=== PATIENT | female | born 1995 | race Two or more races ===

== ENCOUNTER 2021-03-24 11:17 | Inpatient (IN) | payer SELFPAY ==
[~2021-03-24] VITALS: Ht 157.5 cm; Wt 67.3 kg
--- NOTE | 2021-03-24 12:07 | PDOC1 ---
[employer] H&P Date of Admission: Date of Admission: Mar 24, 2021 at 11:17 History of Present Illness: EDC: 03/29/21 LMP: 06/22/20 26y @ 39.2 by L=36 who presents to L&D with ctxs. The pt was initial found to be 2cm. After a couple of hours the pt made minimal change, but continued to ctx regularly. Pit was started for augmentation. PMH: Denies PSH: breast mass 2016 Meds: PNV, Fe All: NKDA OBHx: G1 SH: no tob, no EtOH FH: noncontributory Allergies: Coded Allergies: No Known Drug Allergies (Unverified , 03/24/21) Physical Exam: PE: GENERAL: No apparent distress. Alert and oriented. HEENT: Head normocephalic, atraumatic. NECK: Supple LUNGS: Clear to auscultation. HEART: RRR, S1, S2 present, pulses intact ABDOMEN: Soft, positive bowel sounds. EXTREMITIES: No cyanosis or edema. NEUROLOGIC: Normal speech, normal tone PSYCHIATRIC: Normal affect, normal mood. SKIN: No ulceration. FHT: 130s +acels/no decels/mLTV [place]: 2-3 min SVE: 06/29/-3 Assessment & Plan: A/P 26y @ 39.2 by L=35 1.) Latent vs active labor - on Pit for augmentation 2.) Late presentation to care (TOB from [place]) 3.) Anemia 4.) Rub NI 5.) TDAP given 01/25/21 6.) Fetus cat I FHT 7.) GBS neg DODIE BARNES MD Mar 24, 2021 12:07
[2021-03-24] MEDS ORDERED: IV RINGERS,LACTATED 1000ML 1,000 ML IV PRN (12:15)
[2021-03-24 12:23] LABS: BILIRUBIN,URINE NEGATIVE (NEG); CLARITY,URINE CLEAR; COLOR,URINE YELLOW; NITRITE,URINE NEGATIVE (NEG); PH,URINE 7.5 (<5.0-8.0); PROTEIN,URINE NEGATIVE (NEG-TRACE); UROBILINOGEN,URINE 0.2 mg/dL (0.2 mg/dL)
[2021-03-24 12:43] LABS: BACTERIA,URINE 0 /HPF (0-FEW); RBC,URINE 0 /HPF (0-2)
[2021-03-24] MEDS ORDERED: ACETAMINOPHEN 325 MG TABLET. PO PRN (15:15)
[2021-03-24] MEDS ORDERED: IV RINGERS,LACTATED 1000ML 1,000 ML IV SCH (15:15)
[2021-03-24] MEDS ORDERED: TERBUTALINE 1 MG/ML VIAL. SQ PRN (15:15)
[2021-03-24] MEDS ORDERED: OXYTOCIN 30 UNIT/500 ML PREMIX 500 ML IV PRN (15:15)
[2021-03-24] MEDS ORDERED: BUTORPHANOL 2 MG/ML VIAL. IVP PRN ×2 (15:15)
[2021-03-24] MEDS ORDERED: LIDOCAINE 1% PF 30 ML VIAL. INJ PRN (15:15)
[2021-03-24] MEDS ORDERED: 0.9 % SODIUM CHLORIDE 10 ML DISP.SYRIN. IV PRN (15:15)
[2021-03-24] MEDS ORDERED: OXYTOCIN PREMIX 30 UNIT/500 ML NS BAG. IV ONE (15:30)
[2021-03-24 16:21] LABS: BASO # 0.1 x10^3/uL (0.0-0.2); BASO % 0 % (0-3); EOS % 0 % (0-3); HEMATOCRIT 36.6 % (36.0-47.0); HEMOGLOBIN 12.3 g/dL (12.0-15.5); LYMPH # 1.8 x10^3/uL (1.0-4.8); LYMPH % 11 % (24-48); MEAN CORPUSCULAR HEMOGLOBIN 29 pg (25-35); MEAN CORPUSCULAR HGB CONC 34 g/dL (31-37); MEAN CORPUSCULAR VOLUME 87 fL (79-100); MONO # 0.6 x10^3/uL (0.0-1.1); MONO % 4 % (0-9); NEUT # 13.9 x10^3/uL (1.8-7.7); NEUT % 85 % (31-73); PLATELET COUNT 319 x10^3/uL (140-400); RED BLOOD COUNT 4.22 x10^6/uL (3.50-5.40); RED CELL DISTRIBUTION WIDTH 14.4 % (11.5-14.5); WHITE BLOOD COUNT 16.4 x10^3/uL (4.0-11.0)
[2021-03-24 16:57] LABS: % BANDS 6 % (0-9); % LYMPHS 7 % (24-48); % MONOS 2 % (0-10); % SEGS 85 % (35-66)
[2021-03-24 16:58] LABS: PLT ESTIMATE ADEQUATE (ADEQUATE)
[2021-03-24] MEDS ORDERED: ONDANSETRON PF 4 MG/2 ML VIAL. IVP PRN (19:15)
[2021-03-25] MEDS ORDERED: fentaNYL PF VIAL 100 MCG/2 ML VIAL IM ONE (03:30)
[2021-03-25] MEDS ORDERED: fentaNYL PF VIAL 100 MCG/2 ML VIAL IVP ONE (03:30)
--- NOTE | 2021-03-25 09:06 | PDOC4 ---
VAGINAL DELIVERY DATE DATE: 03/25/21 TIME: 09:05 TIME Patient delivered a viable female over intact perineum at 0850. Wt 3465 g. Apgars 8/9. Placenta delivered spontaneously, intact with 3VC. No lacerations. Good hemostasis noted. 20 U of Pit given with IVF. EBL 300 cc. Mom and baby with fever after delivery. WEIGHT Weight [ ] DODIE BARNES MD Mar 25, 2021 09:06
--- NOTE | 2021-03-25 11:46 | NUR ---
RN notifies MD of pt. pulse jumping to 150s and down to 90s then in 120s, orders to give pt. 1000cc bolus and recheck
[2021-03-25] MEDS ORDERED: FLU VACC QUAD 21-22 (6MOS+) PF 0.5 ML SYRINGE. VAX IM ONE (12:30)
[2021-03-25] MEDS ORDERED: BENZOCAINE 20% TOPICAL AEROSOL SPRAY 57GM CAN. TP PRN (12:45)
[2021-03-25] MEDS ORDERED: TDaP (Adacel) per PROTOCOL. MC PRN (12:45)
[2021-03-25] MEDS ORDERED: HYDROCORTISONE 1% TOPICAL OINTMENT 30GM TUBE. TP PRN (12:45)
[2021-03-25] MEDS ORDERED: SIMETHICONE 80 MG TAB.CHEW PO PRN (12:45)
[2021-03-25] MEDS ORDERED: ZOLPIDEM 5 MG TABLET. PO PRN (12:45)
[2021-03-25] MEDS ORDERED: diphenhydrAMINE HCL 25 MG CAPSULE PO PRN (12:45)
[2021-03-25] MEDS ORDERED: 0.9 % SODIUM CHLORIDE 10 ML DISP.SYRIN. IV PRN (12:45)
[2021-03-25] MEDS ORDERED: MAG HYDROX/ALUMINUM HYD/SIMETH 30 ML ORAL.SUSP PO PRN (12:45)
[2021-03-25] MEDS ORDERED: MAGNESIUM HYDROXIDE 2,400 MG/30 ML ORAL.SUSP. PO PRN (12:45)
[2021-03-25] MEDS ORDERED: oxyCODONE/APAP 5/325 1 TAB TABLET PO PRN (12:45)
[2021-03-25] MEDS ORDERED: MMR per PROTOCOL. MC PRN (12:45)
[2021-03-25] MEDS ORDERED: PHENYLEPH/MINERAL OIL/PETROLAT RECTAL OINTMENT TUBE. RC PRN (12:45)
[2021-03-25] MEDS ORDERED: ACETAMINOPHEN 325 MG TABLET. PO PRN (12:45)
[2021-03-25] MEDS ORDERED: OXYTOCIN 30 UNIT/500 ML PREMIX 500 ML IV PRN (12:45)
--- NOTE | 2021-03-25 13:17 | NUR ---
pt. transferred to room at 1300 oriented to room at call light. Pt. showered before transfer and went to , voided well. RN discussed mary care with pt. at this time.
[2021-03-25] MEDS: IBUPROFEN 400 MG TABLET. PO PRN ×2 (13:35→20:24)
[2021-03-25 13:42] VITALS: BP 106/67
[2021-03-25 17:00] VITALS: BP 104/58
[2021-03-25] MEDS: FERROUS SULFATE 325 MG TABLET. PO SCH (20:24)
[2021-03-25] MEDS: DOCUSATE SODIUM 100 MG CAPSULE. PO PRN (20:24)
[2021-03-25 20:29] VITALS: BP 111/59
[2021-03-26 04:26] VITALS: BP 111/55
[2021-03-26 07:49] LABS: HEMOGLOBIN 7.8 g/dL (12.0-15.5); RED BLOOD COUNT 2.74 x10^6/uL (3.50-5.40); RED CELL DISTRIBUTION WIDTH 14.7 % (11.5-14.5); WHITE BLOOD COUNT 16.7 x10^3/uL (4.0-11.0)
[2021-03-26] MEDS: FERROUS SULFATE 325 MG TABLET. PO SCH ×2 (09:09→18:28)
[2021-03-26] MEDS: DOCUSATE SODIUM 100 MG CAPSULE. PO PRN (09:09)
[2021-03-26] MEDS: PRENATAL MULTIVITAMIN TABLET. PO SCH (09:09)
[2021-03-26 09:15] VITALS: BP 95/57
[2021-03-26 13:30] VITALS: BP 119/61
--- NOTE | 2021-03-26 16:28 | PDOC ---
SERVICE ORDER DISPATCHER CHIEF PROGRESS NOTE Date of Service: DATE: 03/26/21 TIME: 1000 Subjective: Doing well. Reports some fatigue. Otherwise, denies CP, SOA, dizziness, or near syncope with activity. Pain well managed. Otherwise denies complaints. Objective: Objective: Fundus firm U-1, non-tender. Scant lochia. . Afebrile, VSS. Vital Signs: Vital Signs Date Time Temp Pulse Resp B/P (MAP) Pulse Ox O2 Delivery O2 Flow Rate FiO2 03/25/21 12:04 Room Air 03/25/21 13:42 97.8 114 18 106/67 (80) 100 97.8 Vital Signs Date Time Temp Pulse Resp B/P (MAP) Pulse Ox O2 Delivery O2 Flow Rate FiO2 03/26/21 13:30 97.8 74 18 119/61 (80) 100 Room Air 97.8 Labs: Laboratory Tests Test 03/26/21 07:00 White Blood Count 16.7 x10^3/uL (4.0-11.0) H Red Blood Count 2.74 x10^6/uL (3.50-5.40) L Hemoglobin 7.8 g/dL (12.0-15.5) #L Hematocrit 24.0 % (36.0-47.0) L Mean Corpuscular Volume 87 fL (79-100) Mean Corpuscular Hemoglobin 28 pg (25-35) Mean Corpuscular Hemoglobin Concent 33 g/dL (31-37) Red Cell Distribution Width 14.7 % (11.5-14.5) H Platelet Count 250 x10^3/uL (140-400) Laboratory Tests 03/26/21 07:00 Laboratory Tests 03/26/21 07:00 Physical Exam: GENERAL: No apparent distress. Alert and oriented. HEENT: Head normocephalic, atraumatic. NECK: Supple LUNGS: Clear to auscultation. HEART: RRR, S1, S2 present, pulses intact ABDOMEN: Soft, positive bowel sounds. EXTREMITIES: No cyanosis or edema. NEUROLOGIC: Normal speech, normal tone PSYCHIATRIC: Normal affect, normal mood. SKIN: No ulceration. Assessment & Plan: Discussed anemia, management recommendations, alarm symptoms, and bleeding precautions. Pt. v/u of all. Tolerates diet, and activity without difficulty. Anticipate d/c home tomorrow. ARLENE MAS CNM Mar 26, 2021 16:28
[2021-03-26 18:00] VITALS: BP 116/68
[2021-03-27 00:07] VITALS: BP 116/61
[2021-03-27] MEDS: IBUPROFEN 400 MG TABLET. PO PRN ×3 (05:22→22:58)
[2021-03-27 05:23] VITALS: BP 105/54
[2021-03-27 07:40] VITALS: BP 107/62
[2021-03-27] MEDS ORDERED: MEASLES, MUMPS & RUBELLA VACC 0.5 ML VIAL. VAX SQ ONE (09:15)
[2021-03-27] MEDS: PRENATAL MULTIVITAMIN TABLET. PO SCH (09:41)
[2021-03-27] MEDS: FERROUS SULFATE 325 MG TABLET. PO SCH ×2 (09:41→17:25)
[2021-03-27] MEDS: DOCUSATE SODIUM 100 MG CAPSULE. PO PRN (09:41)
--- NOTE | 2021-03-27 12:58 | PDOC ---
INFORMATION WRITER PROGRESS NOTE Date of Service: DATE: 03/27/21 TIME: 12:17 Subjective: Assessment completed with nylon operator assistance. Doing well. Denies complaints. No pain. Scant lochia. Tolerates activity without difficulty. Objective: Objective: FF U-2, non-tender. Scant lochia. . Breasts filling. Nipples intact. Vital Signs: Vital Signs Date Time Temp Pulse Resp B/P (MAP) Pulse Ox O2 Delivery O2 Flow Rate FiO2 03/26/21 09:15 Room Air 03/26/21 09:15 97.6 76 18 95/57 (70) 99 97.6 Vital Signs Date Time Temp Pulse Resp B/P (MAP) Pulse Ox O2 Delivery O2 Flow Rate FiO2 03/27/21 09:00 Room Air 03/27/21 07:40 98.2 74 18 107/62 (77) 99 98.2 Physical Exam: GENERAL: No apparent distress. Alert and oriented. HEENT: Head normocephalic, atraumatic. NECK: Supple LUNGS: Clear to auscultation. HEART: RRR, S1, S2 present, pulses intact ABDOMEN: Soft, positive bowel sounds. EXTREMITIES: No cyanosis or edema. NEUROLOGIC: Normal speech, normal tone PSYCHIATRIC: Normal affect, normal mood. SKIN: No ulceration. Assessment & Plan: 1. [id number] 2. Anemia 3. Rub NI - INJ 03/27/2021 4. TDaP 01/25/2021 5. No Covid ARLENE Rodriguez CNM Mar 27, 2021 12:58
[2021-03-27] MEDS ORDERED: IBUP-1027 PO (13:04)
[2021-03-27] MEDS ORDERED: FERR325T72 PO (13:04)
[2021-03-27 14:40] VITALS: BP 112/78
[2021-03-27 18:15] VITALS: BP 112/75
[2021-03-27 23:02] VITALS: BP 114/63
== END 2021-03-27 23:09 | disposition home or self-care (01) | DRG 807 ==
LOC: OBSVTOIN 11:17 → 3 SO LND 11:17
PROVIDERS: ADMIT Obstetrics & Gynecology; ATTEND Obstetrics & Gynecology
PROC: 10E0XZZ Delivery of Products of Conception, External Approach (ICD-10-PCS; principal; 2021-03-25)
DX: O99.02 Anemia complicating childbirth (principal); Z37.0 Single live birth; D64.9 Anemia, unspecified; Z3A.39 39 weeks gestation of pregnancy
CPT/HCPCS: 36415; 81001; 85007; 85025; 85027; 86592; 86850; 86900; 86901; 87086; 87426; 90471; 90686; 90707; J0595; J2405; J2590; J3010; J7120; U0003; U0005; G0378